=== PATIENT | male | born 1960 | race Caucasian/White ===

== ENCOUNTER 2017-08-22 15:15 | Emergency (ER) | payer OTHER ==
[~2017-08-22] VITALS: Ht 180.3 cm; Wt 131.5 kg
[2017-08-22] MEDS ORDERED: ZESTRIL40 MG PO (15:26)
[2017-08-22] MEDS ORDERED: NORCO 7.5-3251 EACH PO (19:23)
[2017-08-22] MEDS ORDERED: PREDNISONE20 MG PO (19:23)
[2017-08-22] MEDS ORDERED: ROBAXIN-750750 MG PO (19:23)
== END 2017-08-22 19:48 | disposition home or self-care (01) ==
LOC: ED 15:15
DX: M54.41 Lumbago with sciatica, right side (principal); M51.36 Other intervertebral disc degeneration, lumbar region; I10 Essential (primary) hypertension; Z88.0 Allergy status to penicillin; Z79.899 Other long term (current) drug therapy
CPT/HCPCS: 72148; 96374; 96375; 99284; J1170; J1885; J2060; J7512